=== PATIENT | male | born 1935 | race Two or more races ===

== ENCOUNTER 2022-01-10 16:04 | Emergency (ER) | payer MEDICARE, OTHER ==
[~2022-01-10] VITALS: Ht 170.2 cm; Wt 66.2 kg
--- NOTE | 2022-01-10 17:00 | NUR ---
SAMIR FROM [facility] EVSLIM FOR AGGRESSIVE BEHAVIOR. TO ER BED 10, HOOKED TO MONITOR, CHANGED TO HOSP GOWN, WARM BLANKET PROVIDED.PATIENT AAO x 2. BREATHING EVEN AND UNLABORED. AWAITING MD LINK
[2022-01-10] MEDS ORDERED: QUET50TA PO (17:13)
[2022-01-10] MEDS ORDERED: GLUC1KIT IM (17:13)
[2022-01-10] MEDS ORDERED: GABA-532 PO (17:13)
[2022-01-10] MEDS ORDERED: INSU100V3 SQ (17:13)
[2022-01-10] MEDS ORDERED: ATOR10TA PO (17:13)
[2022-01-10] MEDS ORDERED: AMIO200T5 PO (17:13)
[2022-01-10] MEDS ORDERED: METF-440 PO (17:13)
[2022-01-10] MEDS ORDERED: LEVE500T9 PO (17:13)
[2022-01-10] MEDS ORDERED: ACET-2605 PO (17:13)
[2022-01-10] MEDS ORDERED: DIVA250T4 PO (17:13)
[2022-01-10] MEDS ORDERED: LORA-259 PO (17:13)
[2022-01-10] MEDS ORDERED: MAGN400O6 PO (17:13)
[2022-01-10] MEDS ORDERED: ACET-868 PO (17:13)
[2022-01-10] MEDS ORDERED: PANT40TA2 PO (17:13)
[2022-01-10] MEDS ORDERED: DEXT38GE12 PO (17:13)
--- NOTE | 2022-01-10 17:30 | NUR ---
PATIENT MENTIONED "I WANT TO BUMP A BOTTLE TO MY HEAD SO I CAN "
--- NOTE | 2022-01-10 17:32 | NUR ---
DR DU AT BEDSIDE
--- NOTE | 2022-01-10 17:52 | NUR ---
RAPID COVID SWAB DONE AND SENT TO LAB
[2022-01-10 17:56] LABS: BASOPHILS % (AUTO) 0.2 % (0.0-2.0); EOSINOPHILS % (AUTO) 2.9 % (0.0-6.0); HEMATOCRIT 36 % (39-51); HEMOGLOBIN 11.9 g/dL (13.5-17.5); LYMPHOCYTES # (AUTO) 2.3 K/uL (0.8-4.8); LYMPHOCYTES % (AUTO) 35.9 % (20.0-44.0); MEAN CORPUSCULAR HGB CONC 33 g/dl (31.0-36.0); MEAN CORPUSCULAR VOLUME 92 fL (80-96); MONOCYTES # (AUTO) 0.7 K/uL (0.1-1.30); MONOCYTES % (AUTO) 10.4 % (2.0-12.0); NEUTROPHILS # (AUTO) 3.2 K/uL (1.8-8.9); NEUTROPHILS % (AUTO) 50.6 % (43.0-81.0); PLATELET COUNT (AUTO) 153 K/uL (150-450); RED BLOOD CELL COUNT(AUTO) 3.91 MIL/uL (4.5-6.0); WHITE BLOOD COUNT (AUTO) 6.3 K/uL (4.3-11.0)
[2022-01-10] MEDS ORDERED: LORAZEPAM 1 MG TABLET ONE ×2 (18:15→21:37)
[2022-01-10] MEDS: LORAZEPAM 1 MG TABLET PO ONE ×2 (18:29→21:44)
--- NOTE | 2022-01-10 18:33 | NUR ---
URINE SAMPLE COLLECTED AND SENT TO LAB
[2022-01-10 19:04] LABS: BILIRUBIN,URINE NEGATIVE (NEGATIVE); COLOR,URINE YELLOW (YELLOW); LEUKOCYTE ESTERASE ,URINE SMALL (NEGATIVE); NITRITE, URINE POSITIVE (NEGATIVE); PROTEIN,URINE TRACE mg/dl (NEGATIVE); UGLUCOSE NEGATIVE (NEGATIVE); UROBILINOGEN,URINE 0.2 EU/dL (0.2)
--- NOTE | 2022-01-10 19:15 | NUR ---
ENDORSEMENT GIVEN TO NEHEMIAS SANCHEZ FOR DICK
[2022-01-10 19:19] LABS: CARBON DIOXIDE 32 mmol/L (21-32); CHLORIDE 104 mmol/L (98-107); CREATININE 1.3 mg/dL (0.6-1.3); GLUCOSE 188 mg/dL (74-106); SODIUM SERUM 139 mmol/L (136-145); UREA NITROGEN, BLOOD 23 mg/dL (7-18)
[2022-01-10 19:25] LABS: ALANINE AMINOTRANSFERASE 20 U/L (12-78); ALBUMIN 3.6 g/dL (3.4-5.0); ALKALINE PHOSPHATASE 70 U/L (46-116); ASPARTATE AMINOTRANSFERASE 14 U/L (15-37); BILIRUBIN,DIRECT 0.1 mg/dL (0.0-0.2); BILIRUBIN,TOTAL 0.3 mg/dL (0.2-1.0); TOTAL PROTEIN, SERUM 6.8 g/dL (6.4-8.2)
[2022-01-10 19:26] LABS: ACETAMINOPHEN < 0 ug/ml (10-30); ALCOHOL, BLOOD < 3 mg/dL (0-0)
[2022-01-10 19:32] LABS: BACTERIA,URINE Moderate /HPF (None Seen); SQUAMOUS EPITHELIAL CELL,UR Few /HPF (None Seen)
--- NOTE | 2022-01-10 20:18 | NUR ---
MRSA SWAB COLLECTED AND SENT TO LAB. PATIENT'S BELONGINGS LIST DONE.
--- NOTE | 2022-01-10 21:00 | NUR ---
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 HE WILL EVALUATE PATIENT.
--- NOTE | 2022-01-10 21:09 | NUR ---
[employer] HAND DRY CLEANER CALLED. SHE SAID PATIENT WILL NOT BE ADMITTED, STABILIZE PATIENT TO GO BACK TO [facility]. MADE AWARE.
[2022-01-10] MEDS ORDERED: OLANZAPINE 5 MG TABLET ONE (21:37)
[2022-01-10] MEDS: OLANZAPINE ZYDIS 5 MG TAB.RAPDIS PO ONE (21:44)
--- NOTE | 2022-01-10 21:44 | NUR ---
PT AGGITATED AND CONFUSED. ADMISTERED ATIVAN AND ZYPREXA ORDERED. WILL REASSESS PT. SAFETY MEASURES IN PLACE
--- NOTE | 2022-01-10 23:21 | NUR ---
[facility] ETA 30-45 MINUTES.
--- NOTE | 2022-01-10 23:52 | NUR ---
Patient discharged to [facility] in stable condition via [facility]. Written and verbal after care instructions given to EMT for DICK
[2022-01-10 23:53] VITALS: BP 121/65
== END 2022-01-11 00:18 ==
LOC: ER 16:20
DX: R45.1 Restlessness and agitation (principal); F03.90 Unspecified dementia, unspecified severity, without behavioral disturbance, psychotic disturbance, mood disturbance, and anxiety; E11.9 Type 2 diabetes mellitus without complications; I10 Essential (primary) hypertension; Z98.61 Coronary angioplasty status; I25.10 Atherosclerotic heart disease of native coronary artery without angina pectoris; F39 Unspecified mood [affective] disorder; Z79.899 Other long term (current) drug therapy; Z20.822 Contact with and (suspected) exposure to COVID-19; Z79.4 Long term (current) use of insulin
CPT/HCPCS: 36415; 80048-TC; 80076-TC; 81001; 85025-TC; 87086-TC; C9803; G0480